=== PATIENT | male | born 1965 | race Caucasian/White ===

== ENCOUNTER 2018-11-20 09:31 | Emergency (ER) | payer OTHER ==
[2018-11-20 09:40] VITALS: BP 133/86
[2018-11-20] MEDS ORDERED: Fluorescein Sodium TOPICAL* 1 MG TEST STRIP OPHTHALMIC ONE (09:41)
[2018-11-20] MEDS ORDERED: Tetracaine 0.5% OPTH.SOL 4 ML* 1 DROP BTL RIGHT EYE ONE (09:47)
--- NOTE | 2018-11-20 09:49 | UC ---
Eye Complaint HPI - HPI Summary HPI Summary: 53 yo male with fb sensation right eye for one week after working under a car photophobia and tearing no d/c - History of Current Complaint Chief Complaint: UCEye Stated Complaint: EYE COMP Time Seen by Provider: 11/20/18 09:33 Hx Obtained From: Patient Onset/Duration: Sudden Onset, Lasting Days Timing: Constant Severity Initially: Mild Severity Currently: Mild Pain Intensity: 1 Pain Scale Used: 0-10 Numeric Location of Injury: Conjunctiva Character: Foreign Body Sensation Aggravating Factor(s): Nothing Alleviating Factor(s): Nothing Associated Signs And Symptoms: Positive: Drainage (Clear) - tears Eyes: 1 - FB - Allergies/Home Medications Allergies/Adverse Reactions: Allergies Allergy/AdvReac Type Severity Reaction Status Date / Time No Known Allergies Allergy Verified 11/20/18 09:40 PMH/Surg Hx/FS Hx/Imm Hx Previously Healthy: Yes - Surgical History Surgical History: Yes Surgery Procedure, Year, and Place: LUMP REMOVED FROM NECK. APPENDECTOMY. HERNIA REPAIR - Family History Known Family History: Positive: Hypertension - Social History Alcohol Use: None Substance Use Type: None Smoking Status (MU): Former Smoker Amount Used/How Often: smoked for 1.5 yrs early 20's, not sure how much Review of Systems All Other Systems Reviewed And Are Negative: Yes Constitutional: Positive: Negative Skin: Positive: Negative Eyes: Positive: Eye Redness, Photophobia ENT: Positive: Negative Respiratory: Positive: Negative Cardiovascular: Positive: Negative Gastrointestinal: Positive: Negative Genitourinary: Positive: Negative Motor: Positive: Negative Neurovascular: Positive: Negative Musculoskeletal: Positive: Negative Neurological: Positive: Negative Psychological: Positive: Negative Physical Exam Triage Information Reviewed: Yes Appearance: Well-Appearing, No Pain Distress, Well-Nourished Vital Signs: Initial Vital Signs Temp 98.5 F 11/20/18 09:36 Pulse 75 11/20/18 09:36 Resp 18 11/20/18 09:36 BP 133/86 11/20/18 09:36 Pulse Ox 98 11/20/18 09:36 Vital Signs Reviewed: Yes Eyes: Positive: Conjunctiva Clear ENT: Positive: Hearing grossly normal. Negative: Nasal congestion, Nasal drainage, Trismus, Muffled voice, Hoarse voice Dental Exam: Normal Neck: Positive: Supple, Nontender, No Lymphadenopathy Respiratory: Positive: Lungs clear, Normal breath sounds, No respiratory distress Cardiovascular: Positive: RRR, No Murmur Musculoskeletal: Positive: ROM Intact, No Edema Neurological: Positive: Alert Psychological Exam: Normal Skin Exam: Normal Procedures - Procedure Summary Procedure Summary: Foreign Body removal right cornea 2 drops tetracaine FB removed with q-tip + residual rust ring Eye Complaint Course/Dx - Differential Dx/Diagnosis Provider Diagnosis: Foreign body of right cornea, Corneal rust ring of right eye, Elevated BP without diagnosis of hypertension Discharge ED - Sign-Out/Discharge Documenting (check all that apply): Patient Departure All imaging exams completed and their final reports reviewed: No Studies - Discharge Plan Condition: Stable Disposition: HOME Patient Education Materials: Eye Foreign Body (ED) Referrals: Ericka Lyon PA [Primary Care Provider] - 2 Weeks (BP RECHECK IN 2-12 WEEKS ) Renny Naranjo MD [Medical Doctor] - As Soon As Possible Additional Instructions: the foreign body was removed but you have a residual RUST RING I expect you to have dramatic improvement of your symptoms over the next 24 hours - Billing Disposition and Condition Condition: STABLE Disposition: Home
== END 2018-11-20 10:10 | disposition home or self-care (01) ==
LOC: UCEAST 09:31
DX: T15.01XA Foreign body in cornea, right eye, initial encounter (principal); X58.XXXA Exposure to other specified factors, initial encounter; Y93.89 Activity, other specified; Y92.9 Unspecified place or not applicable; R03.0 Elevated blood-pressure reading, without diagnosis of hypertension; Z87.891 Personal history of nicotine dependence
CPT/HCPCS: 65220; 99212; A9270-GY; G0463